=== PATIENT | female | born 1950 | race Caucasian/White ===

== ENCOUNTER 2022-04-02 23:31 | Emergency (ER) | payer MEDICARE, BC ==
[~2022-04-02] VITALS: Ht 162.6 cm; Wt 54.0 kg
[2022-04-02 23:44] VITALS: BP 131/79
--- NOTE | 2022-04-02 23:44 | NUR ---
BIBSELF FROM HOME C/O R MIDDLE FINGER DEFORMITY "HEARD A POP" WHILE PUSHING OBJECT. PT A/OX4. TOLERATING R/A WELL WITH NO RESP DISTRESS.
--- NOTE | 2022-04-02 23:48 | NUR ---
PT SEEN BY EDGER OPERATOR
--- NOTE | 2022-04-03 00:53 | NUR ---
Patient discharged to home in stable condition. Written and verbal after care instructions given. Patient verbalizes understanding of instruction.
== END 2022-04-03 01:00 | disposition home or self-care (01) ==
LOC: ER 23:36
DX: S56.113A Strain of flexor muscle, fascia and tendon of right middle finger at forearm level, initial encounter (principal); X58.XXXA Exposure to other specified factors, initial encounter; Y93.89 Activity, other specified; Y92.89 Other specified places as the place of occurrence of the external cause; Y99.8 Other external cause status
CPT/HCPCS: 73130-TC

== ENCOUNTER 2022-06-14 21:21 | Emergency (ER) | payer MEDICARE, BC ==
[~2022-06-14] VITALS: Ht 162.6 cm; Wt 53.5 kg
--- NOTE | 2022-06-14 22:18 | NUR ---
PT BIBSELF FOR CP THAT STARTED @2100, MIDSTERNAL, NON-RADIATING. PT PLACED COMFORTABLY IN BED, VITALS CHECKED. PT AAOX4, ABLE TO MAKE NEEDS KNOWN.
--- NOTE | 2022-06-14 22:22 | NUR ---
EKG COMPLETED AT BEDSIDE
--- NOTE | 2022-06-14 22:38 | NUR ---
20GA LAC ESTABLISHED
--- NOTE | 2022-06-14 22:40 | NUR ---
BLOOD WORK COLLECTED AND SENT TO LAB
--- NOTE | 2022-06-14 22:55 | NUR ---
CXR AT BEDSIDE
[2022-06-14 23:09] LABS: BASOPHILS % (AUTO) 0.6 % (0.0-2.0); EOSINOPHILS % (AUTO) 1.8 % (0.0-6.0); HEMATOCRIT 37 % (33-45); HEMOGLOBIN 11.9 g/dL (11.5-14.8); LYMPHOCYTES # (AUTO) 1.8 K/uL (0.8-4.8); LYMPHOCYTES % (AUTO) 34.4 % (20.0-44.0); MEAN CORPUSCULAR HGB CONC 32 g/dl (31.0-36.0); MEAN CORPUSCULAR VOLUME 99 fL (82-100); MONOCYTES # (AUTO) 0.6 K/uL (0.1-1.30); MONOCYTES % (AUTO) 10.5 % (2.0-12.0); NEUTROPHILS # (AUTO) 2.8 K/uL (1.8-8.9); NEUTROPHILS % (AUTO) 52.7 % (43.0-81.0); PLATELET COUNT (AUTO) 229 K/uL (150-450); RED BLOOD CELL COUNT(AUTO) 3.73 MIL/uL (4.0-5.2); WHITE BLOOD COUNT (AUTO) 5.3 K/uL (4.3-11.0)
--- NOTE | 2022-06-14 23:15 | NUR ---
PT REMAIN IN NAD, NO C/O PAIN AT THIS TIME.
[2022-06-14 23:42] LABS: CALCIUM, SERUM 8.8 mg/dL (8.5-10.1); CARBON DIOXIDE 29 mmol/L (21-32); CHLORIDE 105 mmol/L (98-107); CREATININE 0.6 mg/dL (0.6-1.3); GLUCOSE 101 mg/dL (74-106); POTASSIUM 3.4 mmol/L (3.5-5.1); SODIUM SERUM 141 mmol/L (136-145); UREA NITROGEN, BLOOD 26 mg/dL (7-18)
--- NOTE | 2022-06-15 01:14 | NUR ---
xray at bedside
--- NOTE | 2022-06-15 02:38 | NUR ---
Patient discharged to home in stable condition. Written and verbal after care instructions given. Patient verbalizes understanding of instruction. IV removed. Catheter intact and site benign. Pressure and 4x4 applied to site. No bleeding noted.
[2022-06-15 02:44] VITALS: BP 135/81
== END 2022-06-15 02:45 | disposition home or self-care (01) ==
LOC: ER 21:22
DX: R07.9 Chest pain, unspecified (principal)
CPT/HCPCS: 36415; 71045-TC; 80048-TC; 84484-TC; 85025-TC

== ENCOUNTER 2022-10-01 01:19 | Emergency (ER) | payer MEDICARE, BC ==
[~2022-10-01] VITALS: Ht 162.6 cm; Wt 54.9 kg
[2022-10-01 01:29] VITALS: TEMP 98.7
[2022-10-01] MEDS ORDERED: ASPIRIN 325 MG TABLET PO ONE (01:30)
[2022-10-01] MEDS ORDERED: ONDANSETRON HCL/PF 4 MG/2 ML VIAL IV ONE (01:30)
[2022-10-01] MEDS ORDERED: MORPHINE SULFATE INJ 2 MG/ML DISP.SYRIN IV ONE (01:30)
--- NOTE | 2022-10-01 01:31 | NUR ---
EVALUATED BY DR LIZ
[2022-10-01] MEDS ORDERED: ASPIRIN 325 MG TABLET ONE (01:35)
--- NOTE | 2022-10-01 01:37 | NUR ---
Niyah AOx4, able to express own concerns. Patient reports experiencing chest pain about 25 minutes before arrival. States pain was worrse before getting her but has imporved. Discussed plan of care, pt verbalized agreement.
[2022-10-01 01:50] LABS: BASOPHILS % (AUTO) 0.6 % (0.0-2.0); HEMATOCRIT 36 % (33-45); HEMOGLOBIN 11.9 g/dL (11.5-14.8); LYMPHOCYTES # (AUTO) 1.9 K/uL (0.8-4.8); LYMPHOCYTES % (AUTO) 34.5 % (20.0-44.0); MEAN CORPUSCULAR HGB CONC 33 g/dl (31.0-36.0); MEAN CORPUSCULAR VOLUME 98 fL (82-100); MONOCYTES # (AUTO) 0.6 K/uL (0.1-1.30); MONOCYTES % (AUTO) 11.1 % (2.0-12.0); NEUTROPHILS # (AUTO) 2.9 K/uL (1.8-8.9); NEUTROPHILS % (AUTO) 51.8 % (43.0-81.0); PLATELET COUNT (AUTO) 210 K/uL (150-450); RED BLOOD CELL COUNT(AUTO) 3.68 MIL/uL (4.0-5.2); WHITE BLOOD COUNT (AUTO) 5.5 K/uL (4.3-11.0)
[2022-10-01 02:11] LABS: ALANINE AMINOTRANSFERASE 49 U/L (12-78); ALBUMIN 3.5 g/dL (3.4-5.0); ALKALINE PHOSPHATASE 47 U/L (46-116); ASPARTATE AMINOTRANSFERASE 39 U/L (15-37); BILIRUBIN,DIRECT 0.1 mg/dL (0.0-0.2); BILIRUBIN,TOTAL 0.6 mg/dL (0.2-1.0); CALCIUM, SERUM 9.1 mg/dL (8.5-10.1); CARBON DIOXIDE 30 mmol/L (21-32); CHLORIDE 104 mmol/L (98-107); CREATININE 0.5 mg/dL (0.6-1.3); GLUCOSE 108 mg/dL (74-106); POTASSIUM 3.3 mmol/L (3.5-5.1); SODIUM SERUM 141 mmol/L (136-145); TOTAL PROTEIN, SERUM 6.9 g/dL (6.4-8.2); UREA NITROGEN, BLOOD 24 mg/dL (7-18)
[2022-10-01 05:07] VITALS: BP 140/76; O2SAT 99
== END 2022-10-01 05:09 | disposition home or self-care (01) ==
LOC: ER 01:20
DX: R07.89 Other chest pain (principal); Z95.1 Presence of aortocoronary bypass graft
CPT/HCPCS: 36415; 71045-TC; 80048-TC; 80076-TC; 84484-TC; 85025-TC; 85730-TC